=== PATIENT | female | born 1985 ===

== ENCOUNTER 2017-05-06 20:06 | Emergency (ER) | payer SELFPAY ==
[2017-05-06] MEDS ORDERED: Lorazepam 2 MG/ML VIAL ONE (20:31)
[2017-05-06] MEDS ORDERED: Ketorolac Tromethamine 60 MG/2 ML VIAL ONE (20:31)
[2017-05-06] MEDS ORDERED: Fentanyl 100 MCG/2 ML VIAL ONE (20:31)
[2017-05-06] MEDS ORDERED: Ondansetron ODT 4 MG TAB ONE (20:46)
== END 2017-05-06 21:12 | disposition home or self-care (01) ==
LOC: ERS 20:06
DX: S16.1XXA Strain of muscle, fascia and tendon at neck level, initial encounter (principal); X58.XXXA Exposure to other specified factors, initial encounter
CPT/HCPCS: 96372; J1885; J2060; J3010; Q0162

== ENCOUNTER 2020-12-29 04:56 | Emergency (ER) | payer SELFPAY ==
[2020-12-29] MEDS ORDERED: Diazepam 5 MG TAB ONE (05:30)
== END 2020-12-29 05:37 | disposition home or self-care (01) ==
LOC: ERS 04:56
DX: S16.1XXA Strain of muscle, fascia and tendon at neck level, initial encounter (principal)
CPT/HCPCS: 99283

== ENCOUNTER 2024-11-21 09:24 | Emergency (ER) | payer SELFPAY ==
[2024-11-21 10:43] LABS: #Basophils 0.03 10x3/uL (0.0-0.2); #Eosinophils 0.06 10x3/uL (0.0-0.7); #Monocytes 0.39 10x3/uL (0.11-0.59); #Neutrophils 4.48 10x3/uL (1.40-6.50); %Basophils 0.5 % (0.0-1.0); %Eosinophils 0.9 % (0.0-10.0); %Lymphocytes 23.5 % (21.0-51.0); %Monocytes 6.0 % (0.0-10.0); %Neutrophils 68.6 % (42.0-75.0); Hematocrit 41.0 % (36.0-47.0); Hemoglobin 13.7 g/dL (12.0-16.0); Mean Corpuscular Hemoglobin 29.1 pg (27.0-31.0); Mean Corpuscular Volume 87.2 fL (78.0-98.0); Platelet Count 262 10x3/uL (130-400); Red Blood Cell (RBC) Count 4.70 mill/uL (4.20-5.40); White Blood Cell (WBC) Count 6.52 10x3/uL (4.8-10.8)
[2024-11-21 10:52] LABS: CAUTI Indications for Culture Dysuria,urgency,freq; Glucose, Urine (Dipstick) Normal (Negative); Leukocyte Negative Leu/uL (Negative); Protein, Urine (Dipstick) Negative (Neg-Trace); RBC/HPF 0-3 HPF (0-3); Specific Gravity, Urine 1.011 (1.002-1.036); WBC/HPF 0-3 HPF (0-3)
[2024-11-21 10:55] LABS: Bacteria/HPF 1+ HPF (None Seen); Urine Culture Reflex No No
[2024-11-21 11:29] LABS: ALT (SGPT) 13 U/L (Less than 34); AST (SGOT) 19 U/L (11-34); Albumin 4.0 g/dL (3.1-4.5); Alkaline Phosphatase 69 U/L (40-110); Anion Gap 13 mmol/L (10-20); BUN (Urea Nitrogen) 11 mg/dL (7.0-18.7); Bilirubin, Total 0.2 mg/dL (0.3-1.2); Calc. Creatinine Clearance 0 mL/min (70-130); Calcium 9.2 mg/dL (7.8-10.44); Carbon Dioxide 26 mmol/L (22-29); Chloride 106 mmol/L (98-107); Globulin 3.1 g/dL (2.4-3.5); Glucose 95 mg/dL (70-105); Potassium 4.1 mmol/L (3.5-5.1); Sodium 141 mmol/L (136-145)
[2024-11-21 12:22] LABS: Pregnancy Test - Urine (BHCG) Negative (Negative); Pregu Control Background? CLEAR/WHITE (CLR/WHITE); Pregu Control Bar Appear? YES (CONTROL BAR)
== END 2024-11-21 12:14 | disposition home or self-care (01) ==
LOC: ERS 09:24
DX: H81.13 Benign paroxysmal vertigo, bilateral (principal)
CPT/HCPCS: 80053; 81001; 81025; 85025; 99284